=== PATIENT | female | born 1955 | race Caucasian/White ===

== ENCOUNTER 2024-04-04 05:35 | Observation (INO) ==
[~2024-04-04 05:35] MED LIST: Metoclopramide 5 MG/ML VIAL (10 mg) IV PRN; NS 0.45% 1000 ml BAG 1,000 ML IV SCH; Naloxone 0.4 mg VIAL 0.4 mg/ml 1 ml VIAL IV PRN; fentaNYL 100 mcg/2 ml 50 MCG/ML VIAL IV PRN
[2024-04-04] MEDS ORDERED: ceFAZolin 2 GM in NS PREMIX 2 GM/100 ML BAG IVPB ONE (05:44)
[2024-04-04] MEDS ORDERED: Chlorhexidine MOUTHWASH 0.12% 15 ML UDC ONE (05:44)
[2024-04-04 06:20] LABS: Rapid COVID-19 Molecular Undetected (Undetected)
[2024-04-04] MEDS ORDERED: Scopolamine 1 mg/72hr PATCH ONE (06:22)
[2024-04-04] MEDS: Scopolamine 1 mg/72hr PATCH TRANSDERM ONE (06:22)
[2024-04-04] MEDS: Lactated Ringers 1000 ml BAG 1,000 ML IV SCH ×2 (06:26→11:20)
[2024-04-04] MEDS ORDERED: ceFAZolin VIAL VIAL ONE (07:05)
[2024-04-04] MEDS ORDERED: Lidocaine 1% w EPI 1:100,000 MDV 20 ML VIAL ONE (07:05)
[2024-04-04] MEDS ORDERED: Gelfoam Sponge SIZE 100 SPONGE ONE (07:05)
[2024-04-04] MEDS ORDERED: Thrombin 5,000 UNITS 1 APPLIC KIT - topical use - TOPICAL ONE (07:06)
[2024-04-04] MEDS ORDERED: Sevoflurane BOTTLE ONE (07:06)
[2024-04-04] MEDS ORDERED: Midazolam 2 mg/2 ml VIAL 1 mg/ml 2 ml VIAL (2 mg) ONE (07:09)
[2024-04-04] MEDS ORDERED: fentaNYL 250 mcg/5 ml 50 MCG/ML 5 ml VIAL (250 MCG) ONE (07:10)
[2024-04-04] MEDS ORDERED: Dexamethasone IV 4 MG/ML VIAL 1 ml VIAL ONE (07:10)
[2024-04-04] MEDS ORDERED: Ondansetron 4 mg VIAL 2 MG/ML 2 ml VIAL ONE ×2 (07:10→09:28)
[2024-04-04] MEDS ORDERED: Propofol 10 MG/ML 20 ML BTL ONE (07:10)
[2024-04-04] MEDS ORDERED: Lidocaine 2% PF 5 ML VIAL ONE (07:10)
[2024-04-04] MEDS ORDERED: Rocuronium 50 mg VIAL 10 mg/ml 5 ml VIAL (50 mg) ONE (07:13)
[2024-04-04] MEDS ORDERED: Phenylephrine 40 mcg/mL 10mL (400mcg) SYRINGE ONE (07:36)
[2024-04-04] MEDS ORDERED: Phenylephrine IV 10 MG/ML 1 ml VIAL ONE (08:24)
[2024-04-04] MEDS ORDERED: Ondansetron 4 mg VIAL 2 MG/ML 2 ml VIAL IV PRN (09:04)
[2024-04-04] MEDS ORDERED: Dextran 70/Hypromellose Tears Eye Drops 15 ml BTL (for Artificials Tears) BOTH EYES PRN (09:04)
[2024-04-04] MEDS ORDERED: Morphine 2 MG/ML SYRINGE IV PRN (09:04)
[2024-04-04] MEDS ORDERED: Calcium Carb (TUMS) 500 mg CHEW TAB PO PRN (09:04)
[2024-04-04] MEDS ORDERED: Phenol 1.4% Throat Spray BTL MT PRN (09:04)
[2024-04-04] MEDS ORDERED: Magnesium Hydroxide LIQ 30 ML UDC PO PRN (09:04)
[2024-04-04] MEDS ORDERED: Senna TAB 8.6 mg TAB PO PRN (09:04)
[2024-04-04] MEDS ORDERED: Benzocaine/Menthol LOZ MT PRN (09:04)
[2024-04-04] MEDS ORDERED: Albuterol HFA INHALER 8 gm MDI INH PRN (09:06)
[2024-04-04] MEDS: Ondansetron 4 mg VIAL 2 MG/ML 2 ml VIAL IV PRN (09:31)
[2024-04-04] MEDS ORDERED: Artificial Tear OPHTH.OINT 3.5 GM ONE (10:45)
[2024-04-04] MEDS: Buffered Lidocaine 1% SYRIN 1 ml INTRADERM ONE (11:24)
[2024-04-04] MEDS: Acetaminophen IV 1 GM/100ML 1,000 MG/100 ML BAG IV ONE (11:24)
[2024-04-05 05:41] VITALS: BP 95/52
== END 2024-04-05 10:20 | disposition home or self-care (01) ==
LOC: OR 05:35 → SSU 05:35
PROVIDERS: ADMIT Neurological Surgery; ATTEND Neurological Surgery